=== PATIENT | male | born 1975 | race Caucasian/White ===

== ENCOUNTER 2025-01-17 13:35 | Emergency (ER) | payer OTHER ==
[~2025-01-17] VITALS: Ht 177.8 cm; Wt 88.0 kg
[~2025-01-17 13:35] MED LIST: AMOXICILLIN500 MG PO; LISINOPRIL10 MG PO; PRILOSEC20 MG PO
[2025-01-17] MEDS ORDERED: AMOX TR-K CLV1 EAC1 PO (14:10)
[2025-01-17] MEDS ORDERED: AMOXICILLIN/CLAVULANATE K 875 MG TAB PO ONE (14:15)
[2025-01-17 14:18] VITALS: BP 176/116
== END 2025-01-17 14:19 | disposition home or self-care (01) ==
LOC: ED 13:35
DX: H66.92 Otitis media, unspecified, left ear (principal); I10 Essential (primary) hypertension; F17.200 Nicotine dependence, unspecified, uncomplicated
CPT/HCPCS: 99282